=== PATIENT | male | born 1975 | race Caucasian/White ===

== ENCOUNTER 2016-11-30 16:41 | Emergency (ER) | payer MEDICAID ==
[~2016-11-30] VITALS: Wt 74.6 kg
--- NOTE | 2016-11-30 20:23 | ERD ---
ER Documentation Chief Complaint Date/Time DATE: 11/30/16 TIME: 20:18 Chief Complaint EYE PAIN AND ITCHING FOR A WEEK NO TRAUMA , POSSIBLE FOREIGN BODY. HPI 41-year-old male presents with chief complaint of bilateral eye itching 1 week. 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 He feels particular discomfort over the lateral left eye. He denies loss in vision or vision changes, eye discharge, and fever. He denies wearing contacts or glasses. Currently rates his eye discomfort a 6 out of 10 in severity. He has tried [id number] natural tear drops without relief. Reports history of seasonal allergies. ROS All systems reviewed and are negative except as per history of present illness. Medications Home Meds Active Scripts Ketotifen Fumarate (ALLERGY EYE DROPS) 10 Ml Drops, 1 DROP OP Q12 for 10 Days, # 1 BOTTLE Prov:Taty Mendoza PA-C 11/30/16 PMhx/Soc Medical and Surgical Hx: pt denies Medical Hx History of Surgery: Yes (l thumb fx repair) Anesthesia Reaction: No Hx Alcohol Use: No Hx Substance Use: No Hx Tobacco Use: No Smoking Status: Never smoker Physical Exam Vitals Vital Signs Date Time Temp Pulse Resp B/P Pulse Ox O2 Delivery O2 Flow Rate FiO2 11/30/16 21:18 82 16 138/72 98 Room Air 11/30/16 16:49 98.5 85 21 140/85 98 Physical Exam GENERAL: Non-toxic. No apparent signs of distress. HEENT: Atraumatic. Bilateral eyes are PERRL EOM intact. Normal conjunctiva, no injection. Mild bilateral scleral erythema. No eyelid or lower eyelid swelling noted. Ears: Normal tympanic membrane, no erythema or bulging. No ear canal swelling. No ear discharge. Nose: no nasal discharge. Throat: Oropharynx normal. Tongue pink and moist. No tonsillar swelling or tonsillar exudates. No lymphadenopathy. LUNGS: Clear to auscultation. No accessory muscle use. No wheezing, no crackles. No signs or symptoms of respiratory distress. HEART: Regular rate and rhythm. No murmurs, clicks, rubs or gallops. NEURO: Cranial nerves are grossly intact. Normal mental status for age. Good muscle tone. SKIN: There is no apparent rash, petechiae, erythema or swelling. Good skin turgor. Results 24 hrs Current Medications Medications (Trade) Dose Ordered Sig/Judy Route PRN Reason Start Time Stop Time Status Last Admin Dose Admin Tetracaine HCl (Tetracaine 0.5% Steri-Unit Shell) 1 drop ONCE ONCE BOTH EYES 11/30/16 20:30 3 20:31 DC Fluorescein Sodium (Efuut-D-Spwsl) 1 strip ONCE ONCE BOTH EYES 11/30/16 20:30 3 20:31 DC Procedures/MDM Patient had mild scleral erythema bilaterally with no injection or eye discharge. 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 Patient denies use of contact lenses and changes in vision. A visual acuity test was ordered in the ER. He is afebrile and appears to be no acute distress. Trevino lamp exam: Normal, no fluorescein uptake, no signs of corneal abrasion or ulcer. Visual acuity: 20/30 R, 20/40 L, 20/50 bilateral Based on normal Trevino lamp exam with fluorescein stain and patient's symptoms I explained that I have low suspicion for corneal abrasion, corneal ulcer, UV keratitis, acute angle-closure glaucoma, bacterial or viral conjunctivitis, and foreign body in eye. The symptoms are likely due to allergic conjunctivitis. Which often presents with bilateral eye pruritus. I prescribed the patient Zaditor and suggested follow-up with his PCP. Patient stable for discharge and outpatient management. Advised to follow with PCP in 1-2 days. Departure Diagnosis: Primary Impression: Itchy eyes Additional Impression: Allergic conjunctivitis Laterality: bilateral Qualified Code: H10.13 - Allergic conjunctivitis, bilateral Condition: Taty Raines PA-C Nov 30, 2016 20:23
[2016-11-30] MEDS ORDERED: TETRACAINE 0.5% 4 ML OPH BOTH EYES ONE (20:30)
[2016-11-30] MEDS ORDERED: FLUORESCEIN STRIP BOTH EYES ONE (20:30)
[2016-11-30] MEDS ORDERED: KETO10DR13 OP (20:53)
[2016-11-30 21:18] VITALS: BP 138/72; PULSE 82; RESP 16
== END 2016-11-30 21:19 | disposition home or self-care (01) ==
LOC: FTE 16:41
DX: H57.8 Other specified disorders of eye and adnexa (principal); H10.13 Acute atopic conjunctivitis, bilateral
CPT/HCPCS: Z7502; Z7610; 99283